=== PATIENT | female | born 1965 | race Caucasian/White ===

== ENCOUNTER 2024-10-31 10:58 | Outpatient (AMB) | payer OTHER, SELFPAY ==
--- NOTE | 2024-10-31 11:06 | A.OFFVIS_ITS ---
Vital Signs 10/31/24 11:21 Height 5 ft 5 in Weight 151 lb 8 oz BMI 25.2 BP 134/84 Blood Pressure Location Rt brachial Position Sitting Pulse 70 Pulse Source Pulse Oximeter Pulse Oximetry (%) 97 Oxygen Delivery Method Room Air Intake Visit Reasons: [place] consult w/ associated sx. R/S ASHLEE PT Intake Note: NEW PATIENT for repeat colo screening. Chief Complaint; C/O diarrhea, frequency, general GI upset, dizziness and increased anxiety. Pt reports concerns over possible lactose intolerance as she noticed a pattern with trigger foods such as butter, cheese, etc. 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 Pt notes that when she does go through periods of time without any dairy products, her sx do improve somewhat. Police Communications Dispatcher Required: No Accompanied by: Self / Same As Patient Allergies environmental allergies Allergy (Unknown, Verified 10/31/24 11:07) Unknown ginseng Adverse Reaction (Unknown, Verified 10/31/24 11:07) Vomiting paroxetine Adverse Reaction (Unknown, Verified 10/31/24 11:07) Insomnia HPI HPI [place] consult w/ associated sx. R/S ASHLEE PT: Details: 59 year old? female with past medical history of insomnia, hyperlipidemia, hypothyroidism, GERD, and anxiety is here today for pre colonoscopy screening.? Patient was sent to us by her PCP.? Last colonoscopy in 2018. Patient reports frequent loose stools postprandially and bloating. Patient also reports feeling dizzy at times, she does reports that this happens after eating, no actual syncopal episodes. Feeling this weight makes patient is very anxious. Patient noticed that within drinking milk or anything that has lactose will trigger her symptoms. Patient however tries to eat healthy and frequently cooks her meals.? Patient reports that she feels like sometimes she gets very bloated. Occasional cramping in the upper abdomen sometimes not right after meals. History of transaminitis and was told that she might have issues with her gallbladder. Denies any personal or family history of gastrointestinal disease, colon polyps, or CRC.? Denies history of difficulty with sedation or anesthesia in the past.? Negative for history of sleep apnea.? Denies any history of cardiac, renal, pulmonary, or hepatic disease.?? No history of infectious? diseases like hepatitis A, B, C, HIV or tuberculosis.? Patient is not on any anticoagulation PFSH Medical History Adjustment disorder Insomnia Hypothyroid HLD (hyperlipidemia) GERD (gastroesophageal reflux disease) Anxiety Surgical History (Updated 10/31/24 @ 11:13 by TORITO Wilson) Hx of colonoscopy (~2018) H/O arthroscopy of knee History of hysterectomy Social History Alcohol intake: current Comment: 2 / mos Patient Tobacco Use Status: Former Tobacco user Use of substances other than those prescribed or required for medical reasons: No Review of Systems Const Denies weight gain and Denies weight loss ENT Reports no additional complaints, Denies dysphagia and Denies odynophagia Card Reports no additional complaints Resp Reports no additional complaints GI Denies abdominal pain, Denies belching, Denies melena, Denies bloating, Denies change in bowel habits, Denies dysphagia, Denies excessive flatus, Denies dyspepsia, Denies heartburn, Denies diarrhea, Denies loose stools, Denies nausea, Denies odynophagia and Denies vomiting Musc Reports no additional complaints Neuro Reports no additional complaints Psych Reports no additional complaints Endo Reports no additional complaints Physical Exam Vital Signs: Last Vital Signs Pulse 70 10/31/24 11:21 BP 134/84 10/31/24 11:21 Pulse Ox 97 10/31/24 11:21 Oxygen Delivery Method Room Air 10/31/24 11:21 BMI result Body Mass Index 25.2 Const General: healthy appearing, no acute distress and well developed Nutritional Appearance: well nourished Orientation/consciousness: patient oriented x3 Resp Effort & Inspection: normal respiratory effort, able to speak in complete sentences, no tracheal deviation and symmetric chest movement Auscultation: clear to auscultation bilaterally Cardio Rate: regular rate GI Inspection: Yes normal to inspection and No distended Palpation (GI): Soft to palpation, not firm, nontender and No hepatosplenomegaly present Auscultation: normal bowel sounds General: Yes no CVA tenderness Back/Spine/Pelvis Back: no CVA tenderness Skin General skin exam: elasticity normal, turgor normal and dry skin Neuro General: patient oriented x3 Psych Appearance: grossly normal Mental Status: mental status grossly normal Assessment & Plan Assessment & Plan (1) Screen for colon cancer: Code(s): Z12.11 - Encounter for screening for malignant neoplasm of colon Plan Patient denies any cardiac or respiratory symptoms.? Patient reports frequent postprandial loose stools. Patient reports that she is trying to eat healthy. Her diet consists of home healthy cook meals. Patient reports that she has eating lots of vegetables. Patient will try to get fiber [id number] like Benefiber dual action pre and probiotic. Low FODMAP diet also discussed with patient. However we will rule out malabsorption, check liver panel as well as lipase. Will check her thyroid, magnesium, vitamin-D, B12 and folate. Denies any issues with anesthesia in the past.? Denies any history of sleep apnea.? No history infectious diseases in the past or present.? Not on any anticoagulation therapy.? No family or personal history of colon cancer or polyps.? Patient denies melena, hematochezia, unintentional weight loss or ribbon like stools.? Discussed at length the pre-procedure,? prep, diet & medications as well as what to expect prior, during and after the procedure.?? Stressed the importance of good bowel prep.? ?Patient verbalizes understanding and agrees to plan of care.? She was given the opportunity to ask questions and all questions answered.? We will see her after the procedure.? Orders: Orders Liver Panel Today R74.01 - Elevation of levels of liver transaminase levels Vitamin B12 and Folate Today R19.7 - Diarrhea, unspecified Vitamin D 25-OH (D2 and D3) Today E55.9 - Vitamin D deficiency, unspecified Lipase Today R10.9 - Unspecified abdominal pain TSH reflex Free T4 Today K59.00 - Constipation, unspecified Magnesium Today N18.9 - Chronic kidney disease, unspecified US abdomen complete Today R10.9 - Unspecified abdominal pain Medications: New bisacodyl (Dulcolax (bisacodyl)) take 4 tabs at noon the day before your colonoscopy 20 mg (4 x 5 mg) PO ONCE 1 day 4 tabs 0RF Z12.11 - Encounter for screening for malignant neoplasm of colon polyethylene glycol 3350 (Miralax) As directed by gastroenterology department at [facility] 238 grams PO ONCE 238 grams 0RF Z12.11 - Encounter for screening for malignant neoplasm of colon Coding Level of Care Code New Pt Level 4 (97494) Diagnoses Screen for colon cancer Z12.11 Time Spent (min) 45 Comment 35 minutes spent with patient and additional 10 minutes spent reviewing her records
[2024-10-31 11:21] VITALS: BP 134/84; PULSE 70; O2SAT 97; BMI 25.2
== END 2024-10-31 12:24 | disposition home or self-care (01) ==
LOC: HO.HGI 10:59
PROVIDERS: PCP Physician Assistant; Visit Provider Nurse Practitioner Family
DX: Z01.818 Encounter for other preprocedural examination (principal); Z12.11 Encounter for screening for malignant neoplasm of colon
CPT/HCPCS: 99202

== ENCOUNTER 2024-10-31 10:58 | Outpatient (REF) | payer OTHER, SELFPAY ==
[2024-10-31 13:12] LABS: Alanine Aminotransferase 34 U/L (0-31); Albumin Level 4.5 g/dL (3.5-5.0); Alkaline Phosphatase 79 U/L (39-117); Aspartate Amino Transferase 30 U/L (5-31); Bilirubin Direct 0.2 mg/dL (0.0-0.5); Bilirubin Total 0.6 mg/dL (0.0-1.0); Lipase 21 U/L (8-78); Magnesium 2.2 mg/dL (1.6-2.6); Total Protein 7.1 g/dL (6.5-8.0)
[2024-10-31 13:30] LABS: TSH reflex Free T4 1.29 uIU/mL (0.32-4.0)
[2024-10-31 13:38] LABS: Folate 12.6 ng/mL (> or = 4.0); Vitamin B12 272 pg/mL (200-900)
[2024-11-03 16:53] LABS: Vitamin D 25-OH, D2 <4 ng/mL; Vitamin D 25-OH, D3 46 ng/mL; Vitamin D 25-OH, Total 46 ng/mL (30-100)
== END 2024-10-31 10:59 | disposition home or self-care (01) ==
LOC: HO.LAB 10:58
PROVIDERS: PCP Physician Assistant; Visit Provider Nurse Practitioner Family
DX: R74.01 Elevation of levels of liver transaminase levels (principal); E55.9 Vitamin D deficiency, unspecified; R19.7 Diarrhea, unspecified; R10.9 Unspecified abdominal pain; K59.00 Constipation, unspecified; N18.9 Chronic kidney disease, unspecified
CPT/HCPCS: 36415; 80076; 82306; 82607; 82746; 83690; 83735; 84443

== ENCOUNTER 2025-01-01 08:11 | Outpatient (REF) | payer OTHER, SELFPAY ==
--- NOTE | ~2025-01-01 | US_ITS ---
EXAMINATION: US ABDOMEN HISTORY: R10.9 - Unspecified abdominal pain TECHNIQUE: Real-time grayscale ultrasound imaging of the abdomen was performed and images were reviewed. COMPARISON: There are no prior studies available for comparison. FINDINGS: Liver: The right lobe of the liver measures 13.2 cm in size. The left lobe of the liver measures 8.9 cm in size. The liver demonstrates mildly increased echotexture, consistent with steatosis. No focal mass or intrahepatic biliary ductal dilatation is identified. There is normal hepatopedal flow in the portal vein. Gallbladder and biliary tree: The gallbladder is unremarkable, without evidence of calculi, wall thickening, or pericholecystic fluid. There is no sonographic Bolanos sign. The common bile duct is normal in caliber measuring 4 mm. Kidneys: The right kidney measures 9.5 cm in length. The left kidney measures 10.8 cm in length. There is a tiny calcification in the lateral cortex of the right kidney. A tiny cortical calcification is also noted at the upper pole of the left kidney. There is a 7 x 5 x 6 mm cyst in the midportion of the left kidney. There is no hydronephrosis. Pancreas: The pancreatic head, neck, and body are unremarkable. The pancreatic tail is obscured by bowel gas. Spleen: The spleen is normal in size and contour, measuring 8.8 cm in length. Abdominal aorta and inferior vena cava: The visualized portions of the abdominal aorta and inferior vena cava are normal in caliber. There is no free fluid in the abdomen. US/US abdomen complete IMPRESSION: 1. Mild hepatic steatosis. 2. Bilateral renal cortical calcifications. 7 mm left renal cyst. Electronically signed by: Karel Salinas MD 01/01/2025 09:30 AM EDT
== END 2025-01-01 08:12 | disposition home or self-care (01) ==
LOC: HO.US 08:11
PROVIDERS: Visit Provider Nurse Practitioner Family
DX: R10.9 Unspecified abdominal pain (principal)
CPT/HCPCS: 76700

== ENCOUNTER → 2025-01-01 08:21 | Outpatient (BNV) | payer OTHER, SELFPAY | PROVIDERS: Visit Provider Radiology Diagnostic Radiology | DX: K76.0 Fatty (change of) liver, not elsewhere classified (principal); N28.1 Cyst of kidney, acquired; N20.0 Calculus of kidney | CPT/HCPCS: 76700 ==